=== PATIENT | female | born 1980 | race Caucasian/White ===

== ENCOUNTER 2023-12-31 09:26 | Outpatient (AMB) | payer OTHER, SELFPAY ==
--- NOTE | 2023-12-31 09:36 | MHC.OFFVIS ---
Vital Signs 12/31/23 09:39 Height 5 ft 3 in Weight 145 lb BMI 25.7 BP 105/56 L Blood Pressure Location Lt brachial Position Sitting Pulse 64 Intake Visit Reasons: Colonoscopy Screening, positive cologuard Intake Note: Patient new consult for 1st Pre Colonoscopy screening due a Positive Cologuard Patient denies any GI issues. 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 Accompanied by: Self / Same As Patient Allergies No Known Allergies Allergy (Mild, Verified 12/31/23 09:35) UNKNOWN Medication List - Last Reconciled 12/31/23 by Sharyn Hyde PA-C fluoxetine 20 mg PO DAILY HPI Comments Details: A 43 y/o female-referred qfter positive cologuard She has no GI complaint Bowels are normal, she has a good appetite No respiratory or cardiac issues No nausea, vomiting, hematemesis, hematochezia fever or chills PFSH Surgical History Hx of carpal tunnel repair Hx of section Family History Mother Cancer Father Cancer Social History Household Members: Family Alcohol intake: never Patient Tobacco Use Status: Never used Tobacco Use of substances other than those prescribed or required for medical reasons: No Review of Systems Const All systems reviewed & are unremarkable except as noted in HPI and below Card Denies chest pain and Denies dyspnea Resp Denies dyspnea Physical Exam Vital Signs: Last Vital Signs Pulse 64 12/31/23 09:39 BP 105/56 L 12/31/23 09:39 BMI result Body Mass Index 25.7 Const General: cooperative, healthy appearing, comfortable and no acute distress Orientation/consciousness: patient oriented x3 Limitations: no limitations Eyes Sclerae: sclerae normal Resp Effort & Inspection: normal respiratory effort and able to speak in complete sentences Auscultation: clear to auscultation bilaterally, no rales, no rhonchi and no wheezes Cardio Rate: regular rate Rhythm: regular rhythm Heart sounds: S1 normal heart sound present and S2 normal heart sound present Skin General skin exam: no rashes or lesions noted Neuro General: patient oriented x3 Extrem General: Yes full ROM Psych Appearance: grossly normal Speech and movement: Clear speech present Affect: normal affect Attitude: cooperative Thought content: Normal thought content present Insight: Good insight present (Psych) Judgement: Good judgement present (Psych) Assessment & Plan Assessment & Plan (1) Positive colorectal cancer screening using Cologuard test: Comment: discussed test/ DNA/ approx 1 % false pos- hemorrhoids/ polyps Code(s): R19.5 - Other fecal abnormalities Category: Medical Plan: colonoscopy Discussed procedure rare risk need for escort Plan BMI: 25.7kg/m? Orders: Orders Colonoscopy - GI Use Only Today R19.5 - Other fecal abnormalities Medications: New polyethylene glycol 3350 (Miralax) Take as directed by mouth the day before your procedure. 238 grams PO ONCE 1 day PRN 238 grams 0RF laxative effect bisacodyl (Dulcolax (bisacodyl)) Day before procedure @ 12 noon Take 4 tablets by mouth followed by large glass of water 20 mg (4 x 5 mg) PO ONCE 1 day PRN 4 tabs 0RF colonoscopy prep Z12.11 - Encounter for screening for malignant neoplasm of colon Patient Instructions: Pleasant 43-year-old female referred after positive Cologuard-history of hemorrhoids Questions answered to her satisfaction, Will schedule for colonoscopy, discussed procedure, rare risks need for escort MiraLax Gatorade prep, reviewed literature given Encouraged to call questions or concerns Appreciate the opportunity assist in care pleasant patient Coding Level of Care Code New Pt Level 3 (71915) Diagnoses Positive colorectal cancer screening using Cologuard test R19.5 Time Spent (min) 30
[2023-12-31 09:39] VITALS: BP 105/56; PULSE 64; BMI 25.7
== END 2023-12-31 10:21 | disposition home or self-care (01) ==
PROVIDERS: Referring Provider Nurse Practitioner Family; Visit Provider Physician Assistant
DX: R19.5 Other fecal abnormalities (principal)
CPT/HCPCS: 99203

== ENCOUNTER → 2023-12-31 09:26 | Outpatient (BNVA) | payer OTHER, SELFPAY | PROVIDERS: Referring Provider Nurse Practitioner Family; Visit Provider Physician Assistant | DX: R19.5 Other fecal abnormalities (principal) | CPT/HCPCS: 99202 ==

== ENCOUNTER 2024-03-09 12:26 | Day surgery (SDC) | payer OTHER, SELFPAY ==
--- NOTE | 2024-03-08 10:53 | HO.ANESPROP2 ---
Documented by User: Ebonie Mckeon NP 03/08/24 10:53 HPI - Anesthesia Eval Consult details Narrative: 43yo F for Colonoscopy PMFSH Active Problems Active Problems: All Active Problems Positive colorectal cancer screening using Cologuard test (Acute) Encounter for screening colonoscopy (Acute) Past Medical History Medical History (Updated 03/09/24 @ 12:35 by Nanette Bolton, RN) Depression Family History Family History Mother Cancer Father Cancer Surgical History Surgical History Hx of carpal tunnel repair Hx of section Social History Social History Household Members: Family Alcohol intake: never Patient Tobacco Use Status: Never used Tobacco Use of substances other than those prescribed or required for medical reasons: No Are you DNR?: No Advance Directives: No Advance Directives Information Provided: Yes Meds Allergies Allergy/AdvReac Type Severity Reaction Status Date / Time No Known Allergies Allergy Mild UNKNOWN Verified 03/09/24 12:43 Home Medications ?Medication ?Instructions ?Recorded ?Confirmed ?Last Taken ?Type fluoxetine 10 mg capsule 10 mg PO DAILY 03/09/24 03/09/24 Unknown History Assessment and Plan Assessment Anesthesia Assessment: Chart Reviewed Documented by User: Taj Marcial MD 03/09/24 14:21 PMFSH Past Medical History Medical History (Updated 03/09/24 @ 12:35 by Nanette Bolton RN) Depression Patient : No Family History Family History Mother Cancer Father Cancer Family history of problems with anesthesia: No Surgical History Surgical History Hx of carpal tunnel repair Hx of section History of Problems with Anesthesia: No Social History Social History Household Members: Family Alcohol intake: never Patient Tobacco Use Status: Never used Tobacco Use of substances other than those prescribed or required for medical reasons: No Are you DNR?: No Advance Directives: No Advance Directives Information Provided: Yes Meds Allergies Allergy/AdvReac Type Severity Reaction Status Date / Time No Known Allergies Allergy Mild UNKNOWN Verified 03/09/24 12:43 Home Medications ?Medication ?Instructions ?Recorded ?Confirmed ?Last Taken ?Type fluoxetine 10 mg capsule 10 mg PO DAILY 03/09/24 03/09/24 Unknown History Exam Airway Mallampati Class: I TM Dist: >3cm Neck ROM: Full Loose/Missing/Broken Teeth: No Heart: ok Lungs: ok Assessment and Plan Assessment Anesthesia Assessment: Anesthesia Plan Discussed Final Anesthetic Review Family History of Problems with Anesthesia: No History of Problems with Anesthesia: No NPO: Yes ASA Class: I Final Preanesthetic Review: No Changes in Pt Med Stat, Meds/Allgs Chart Reviewed, Consent Obtained/Reviewed and Anes Risks/Benef Reviewed Patient Risk: Low Procedure Risk: Low Anesthetic Plan Anesthetic Plan: MAC: and Agree w/ Assess. and Plan Disposition: Standard PACU
--- NOTE | 2024-03-09 12:28 | MHC.SHP ---
Pre-Procedural Eval Section A - 24 Hr Update-Section A only Date of Service: 03/09/24 The patient is an INPATIENT: No The patient has been examined within 24 hours of the surgical procedure. The History & Physical has been completed within 30 days and I have reviewed it.: No Section B - Complete if H&P > 30 days Chief Complaint: Colon cancer screen, positive Cologuard Relevant Family History (Specify if Yes): No Relevant Social History: None Present Medications: see Short Stay Collaborative assessment Medical History: Significant History (Positive Cologuard test) History of Previous Operations: Relevant previous surgery/procedure and date(s) (Hx of carpal tunnel repair Hx of section) Allergies: Allergies Allergy/AdvReac Type Severity Reaction Status Date / Time No Known Allergies Allergy Mild UNKNOWN Verified 12/31/23 09:35 Review of Systems Sugical H&P ROS: Negative: Constitution, Cardiovascular, Respiratory and Gastrointestinal Exam Surgical H&P Exam: Normal: Heart, Normal: Lungs, Normal: Extremities and Normal: Abdomen Plan Diagnosis/Plan: Unchanged I have reviewed the history and physical and performed a pertinent physical examination on my patient. No changes have occurred unless specified. Time Spent With Patient Time: Total time managing care of this patient today ____ minutes.
[2024-03-09 12:36] VITALS: BMI 23.9
[2024-03-09 12:55] VITALS: BP 106/66; PULSE 62; RESP 15; TEMP 36.5; O2SAT 100
[2024-03-09] MEDS: Lactated Ringers 1,000 ML 100 ML IVCONT (12:58)
[2024-03-09 13:26] LABS: UPreg QC Valid YES; Urine Pregnancy NEGATIVE (NEGATIVE)
--- NOTE | 2024-03-09 14:57 | P.OPN-COLO_ITS ---
Colonoscopy Operative Note Operative Note Date of Service: 03/09/24 Narrative: COLONOSCOPY TILL CECUM WITH SNARE POLYPECTOMY, SUBMUCOSAL INJECTION AND HEMOCLIP PLACEMENT Pre-op diagnosis: Colon cancer screening, positive Cologuard test. Post-op diagnosis:? Colon polyps, Diverticulosis Endoscopist:Alfonso La MD Anesthesia:?MAC Consent: Indications for the procedure and potential complications of bleeding, perforation, reaction to medications and missed diagnosis were discussed with the patient and informed consent was obtained. Instrument: Olympus PCF H 190 L variable stiffness pediatric colonoscope Monitoring: Vital signs and clinical assessment, intermittent blood pressure monitoring, continuous EKG monitoring, Pulse oximetry and Carbon Dioxide monitoring were done throughout the procedure. Please see anesthesia flowsheet. Colon withdrawl time was 27 minutes. Procedure: The patient was placed in the left lateral decubitis position and pre-procedure medications were administered. After a digital rectal examination of the ano-rectum, the video colonoscope was inserted into the rectum and advanced through the colon to the cecum. The colonoscope was slowly withdrawn in a retrograde panoramic fashion and the colon mucosa was carefully examined including a retroflexed view of the rectum. Findings and interventions are described below. Procedure Difficulty: Colon was long and there was some loop formation. No maneuvers were required Findings: Terminal Ileum: Not evaluated Cecum: Normal Ascending Colon: A 15 mm flat polyp in the proximal AC at 80 cms. Polyp was raised with 3 cc of Eleview and removed with a stiff hot snare. Polypectomy site was closed with 1 hemoclip and marked by Mona ink A 2 cms flat polyp in the proximal AC at 80 cms. Polyp was raised with 4 cc of Eleview and removed with a stiff hot snare. Polypectomy site was closed with 2 hemoclips and marked by Mona ink Transverse Colon: Normal Descending Colon: Normal Sigmoid Colon: Moderate diverticulosis Rectum: Normal Ano-rectum: Normal Colon preparation: Good after some irrigation. [place] Bowel Preparation Scale Right colon; 2 Transverse colon: 2 Left colon; 2 (0 = Unprepared colon segment with mucosa not seen due to solid stool that cannot be cleared. 1 = Portion of mucosa of the colon segment seen, but other areas of the colon segment not well seen due to staining, residual stool and/or opaque liquid. 2 = Minor amount of residual staining, small fragments of stool and/or opaque liquid, but mucosa of colon segment seen well. 3 = Entire mucosa of colon segment seen well with no residual staining, small fragments of stool or opaque liquid) Impression and Post Procedure Diagnosis: Colonoscopy Findings: Two medium sized polyps were removed Moderate diverticulosis seen in the sigmoid colon Plan: Pt has a FU appointment on 05/10/24 with MARCO A Cervantes Repeat Colonoscopy in 1 year if polyps are adenomatous (to check polypectomy sites) and 10 year if polyps are hyperplastic (adult colonoscope for future colonoscopies) Above findings were reviewed with the patient and relevant handouts were given and the discharge area. BIOPSIES SHOWED: Colon, ascending, polypectomy x2: Sessile serrated polyp/lesion without dysplasia (2). Letter sent advising repeat colon in 1 year.
[2024-03-09 15:01] VITALS: BP 94/61; PULSE 62; RESP 16; TEMP 36.8; O2SAT 99
[2024-03-09 15:16] VITALS: BP 103/68; PULSE 60; RESP 16; TEMP 36.8; O2SAT 100
== END 2024-03-09 15:38 | disposition home or self-care (01) ==
PROVIDERS: Nurse Practitioner; PCP Nurse Practitioner Family; Visit Provider Internal Medicine Gastroenterology
PROC: 0DJD8ZZ Inspection of Lower Intestinal Tract, Via Natural or Artificial Opening Endoscopic (ICD-10-PCS; CPT 45378; principal; 2024-03-09 13:40)
DX: R19.5 Other fecal abnormalities (principal); D12.2 Benign neoplasm of ascending colon; K57.30 Diverticulosis of large intestine without perforation or abscess without bleeding
CPT/HCPCS: 45385; 45381; 81025; 88305; J2704

== ENCOUNTER → 2024-03-09 12:26 | Outpatient (BNV) | payer OTHER, SELFPAY | PROVIDERS: PCP Nurse Practitioner Family; Visit Provider Internal Medicine Gastroenterology | DX: Z12.11 Encounter for screening for malignant neoplasm of colon (principal); R19.5 Other fecal abnormalities; K63.5 Polyp of colon; K57.30 Diverticulosis of large intestine without perforation or abscess without bleeding | CPT/HCPCS: 45381; 45385 ==

== ENCOUNTER 2025-07-21 13:28 | Outpatient (AMB) | payer OTHER, SELFPAY ==
--- NOTE | 2025-07-21 13:29 | MHC.OFFVIS ---
Vital Signs 07/21/25 13:34 Height 5 ft 3 in Weight 145 lb BMI 25.7 BP 118/72 Blood Pressure Location Rt brachial Position Sitting Pulse 72 Pulse Source Pulse Oximeter Pulse Oximetry (%) 98 Oxygen Delivery Method Room Air Intake Visit Reasons: pre colonoscopy screening Intake Note: Patient complex follow up for a year Colonoscopy recall Patient cc: Pt denies any current GI sx or concerns. Pt did just have a brief question regarding clarification of her last results and why the repeat colo had to be so soon. Environment Coordinator Required: No Accompanied by: Self / Same As Patient Allergies No Known Allergies Allergy (Mild, Verified 07/21/25 13:29) UNKNOWN Medication List - Last Reconciled 07/21/25 by Nubia Yuen CNP fluoxetine 20 mg PO DAILY HPI HPI pre colonoscopy screening: Details: Patient is a 44-year-old female with PMH of depression, alcohol dependence in remission. Referred by PCP for pre colonoscopy screening following positive Cologuard. Helen presents for GI follow-up after a positive Cologuard and interval colonoscopy (03-09-2024), which showed two polyps (15 mm and 2 cm, ascending colon, path pre-cancerous) and sigmoid diverticulosis. Colonoscopy otherwise complete with good prep; no visualized hemorrhoids. She describes intermittent rectal pressure and a sensation of ?pouches? 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 Bowel movements occur mostly daily, generally soft, but occasionally associated with incomplete evacuation sensation; denies overt constipation, straining, or hematochezia. Dietary transgressions with rice, beans, and peppers can trigger transient generalized abdominal discomfort, though symptoms resolved with dietary adjustment. No current nausea, vomiting, heartburn, or dysphagia. Appetite and weight are stable. No systemic complaints. Relevant history includes prior diagnosis of IBS (no acute symptoms currently) and remote x6. She denies any problems with sedation/anesthesia. Patient denies: fever/chills, n/v, appetite changes, pyrosis, regurgitation,dysphasia, unintentional wt loss, ab pain or melena/hematochezia. Social hx: -Remote heavy use; sober x14 yrss -Remote marijuana and other; abstinent for years, denies current recreational drug use -non-smoker - family hx as below -denies personal hx of CA -denies significant cardiopulmonary history -tolerated anesthesia in the past without difficulty. PFSH Medical History (Updated 07/21/25 @ 14:21 by Nubia Yuen CNP) Rectal pressure Colon cancer screening Sessile serrated polyp of colon Depression Surgical History Hx of colonoscopy Hx of carpal tunnel repair Hx of section Family History (Updated 07/21/25 @ 14:03 by Nubia Yuen CNP) Mother Cancer Father Cancer Social History Household Members: Family Alcohol intake: never Patient Tobacco Use Status: Never used Tobacco Review of Systems Const Reports as per HPI ENT Reports as per HPI Card Reports as per HPI Resp Reports as per HPI GI Reports as per HPI Reports as per HPI Physical Exam Vital Signs: Last Vital Signs Pulse 72 07/21/25 13:34 BP 118/72 07/21/25 13:34 Pulse Ox 98 07/21/25 13:34 Oxygen Delivery Method Room Air 07/21/25 13:34 BMI result Body Mass Index 25.7 Const General: healthy appearing, no acute distress and well developed Nutritional Appearance: average body habitus Orientation/consciousness: patient oriented x3 HEENT Head: Yes normal to inspection, Yes normocephalic and Yes atraumatic Face and sinus: Yes normal facial exam Eyes General: appearance normal, both eyes and all related structures Neck Neck: Yes normal visual inspection Resp Effort & Inspection: normal respiratory effort, able to speak in complete sentences, no tracheal deviation and symmetric chest movement Cardio Jugular venous distension: no JVD GI Rectal Exam - Female: visual inspection normal, normal sphincter tone, No External hemorrhoid(s) present, No Internal hemorrhoid(s) present, No Rectal prolapse, No fecal impaction, No Lesions present (GI), No Anal fissure(s) present, No Laceration(s) present (GI), No Excoriation present (GI), No mass and No tenderness Neuro General: patient oriented x3 Gait exam (Neuro): Normal gait present Psych Appearance: grossly normal Mental Status: mental status grossly normal Speech and movement: Normal speech and movement present Affect: normal affect Attitude: cooperative Thought process: Normal thought process present Thought content: Normal thought content present Insight: Good insight present (Psych) Judgement: Good judgement present (Psych) Results Reviewed Results Reviewed: Operative Note Date of Service: 03/09/24 Narrative: COLONOSCOPY TILL CECUM WITH SNARE POLYPECTOMY, SUBMUCOSAL INJECTION AND HEMOCLIP PLACEMENT Pre-op diagnosis: Colon cancer screening, positive Cologuard test. Post-op diagnosis: Colon polyps, Diverticulosis Endoscopist: Mario La MD Anesthesia: MAC Consent: Indications for the procedure and potential complications of bleeding, perforation, reaction to medications and missed diagnosis were discussed with the patient and informed consent was obtained. Instrument: Olympus PCF H 190 L variable stiffness pediatric colonoscope Monitoring: Vital signs and clinical assessment, intermittent blood pressure monitoring, continuous EKG monitoring, Pulse oximetry and Carbon Dioxide monitoring were done throughout the procedure. Please see anesthesia flowsheet. Colon withdrawl time was 27 minutes. Procedure: The patient was placed in the left lateral decubitis position and pre-procedure medications were administered. After a digital rectal examination of the ano-rectum, the video colonoscope was inserted into the rectum and advanced through the colon to the cecum. The colonoscope was slowly withdrawn in a retrograde panoramic fashion and the colon mucosa was carefully examined including a retroflexed view of the rectum. Findings and interventions are described below. Procedure Difficulty: Colon was long and there was some loop formation. No maneuvers were required Findings: Terminal Ileum: Not evaluated Cecum: Normal Ascending Colon: A 15 mm flat polyp in the proximal AC at 80 cms. Polyp was raised with 3 cc of Eleview and removed with a stiff hot snare. Polypectomy site was closed with 1 hemoclip and marked by Mona ink A 2 cms flat polyp in the proximal AC at 80 cms. Polyp was raised with 4 cc of Eleview and removed with a stiff hot snare. Polypectomy site was closed with 2 hemoclips and marked by Mona ink Transverse Colon: Normal Descending Colon: Normal Sigmoid Colon: Moderate diverticulosis Rectum: Normal Ano-rectum: Normal Colon preparation: Good after some irrigation. [place] Bowel Preparation Scale Right colon; 2 Transverse colon: 2 Left colon; 2 (0 = Unprepared colon segment with mucosa not seen due to solid stool that cannot be cleared. 1 = Portion of mucosa of the colon segment seen, but other areas of the colon segment not well seen due to staining, residual stool and/or opaque liquid. 2 = Minor amount of residual staining, small fragments of stool and/or opaque liquid, but mucosa of colon segment seen well. 3 = Entire mucosa of colon segment seen well with no residual staining, small fragments of stool or opaque liquid) Impression and Post Procedure Diagnosis: Colonoscopy Findings: Two medium sized polyps were removed Moderate diverticulosis seen in the sigmoid colon PATHOLOGY: collected: 03/09/24 Location: [facility] Received: 03/10/24 Diagnosis Colon, ascending, polypectomy x2: Sessile serrated polyp/lesion without dysplasia (2). Clinical History Pre-Op Dx: Screening Post-Op Dx: Colon polyps, diverticulosis Assessment & Plan Assessment & Plan (1) Sessile serrated polyp of colon: Comment: 03/09/24 colonoscopy complete with good prep after irrigation- 15 mm, 2cm SSP ( ascending), diverticulosis (sigmoid). Recommendation for repeat in 1 year. Code(s): D12.6 - Benign neoplasm of colon, unspecified Category: Medical Plan: Colonoscopy showed two large polyps (>1 cm), path pre-cancerous Additional Testing: Repeat surveillance colonoscopy recommended 1 year post-polypectomy (order placed) Medication Management: None required Lifestyle Recommendations: Maintain high-fiber diet, adequate hydration, adherence to surveillance schedule Follow-Up: Colonoscopy in ~6?7 months (per surveillance protocol); GI to reassess post-procedure (2) Rectal pressure: Code(s): R19.8 - Other specified symptoms and signs involving the digestive system and abdomen Category: Medical Plan: Episodic, especially after exercise; normal MARCIAL and prior scope; no concerning features Additional Testing: pending colonoscopy. Otherwise, none indicated at present Medication Management: None needed; reassurance provided Lifestyle Recommendations: Monitor for symptom progression; consider pelvic floor exercises if pressure persists or worsens; gradual increase in physical activity; avoid known dietary triggers Follow-Up: PRN for worsening or persistent symptoms Plan Follow-up after endoscopy or sooner as needed Time: I spent a total of 31 minutes on the date of encounter which includes: Preparing to see the patient (reviewed previous documentation, test results and medical history) Performing a medically appropriate exam and/or evaluation Ordering medications, tests, and procedures Documenting clinical information in the health record Orders: Referrals GI Procedure Notification D12.6 - Benign neoplasm of colon, unspecified, Z12.11 - Encounter for screening for malignant neoplasm of colon Medications: New bisacodyl take four tablets once day of colonoscopy prep 20 mg (4 x 5 mg) PO ONCE 4 tabs 0RF polyethylene glycol 3350 (Miralax) per colonoscopy prep instructions 238 grams PO ONCE 238 grams 0RF Coding Level of Care Code Established Pt Est Pt Level 4 (23277) Patient Type Established Diagnoses Sessile serrated polyp of colon D12.6 Rectal pressure R19.8
[2025-07-21 13:34] VITALS: BP 118/72; PULSE 72; O2SAT 98; BMI 25.7
== END 2025-07-21 14:17 | disposition home or self-care (01) ==
LOC: HO.HGI 13:29
PROVIDERS: PCP Nurse Practitioner Family; Visit Provider Nurse Practitioner Family
DX: D12.6 Benign neoplasm of colon, unspecified (principal); R19.8 Other specified symptoms and signs involving the digestive system and abdomen
CPT/HCPCS: 99214

== ENCOUNTER → 2025-07-21 13:28 | Outpatient (BNVA) | payer OTHER, SELFPAY | PROVIDERS: PCP Nurse Practitioner Family; Visit Provider Nurse Practitioner Family | DX: D12.5 Benign neoplasm of sigmoid colon (principal); R19.8 Other specified symptoms and signs involving the digestive system and abdomen | CPT/HCPCS: 99212 ==